=== PATIENT | female | born 1990 | race Two or more races ===

== ENCOUNTER 2019-03-05 03:13 | Emergency (ER) | payer SELFPAY ==
[~2019-03-05] VITALS: Ht 149.9 cm; Wt 57.2 kg
--- NOTE | 2019-03-05 03:20 | NUR ---
PT [id number] FOR ETOH, "FOUND PT IN THE [place] BY [employer]" -HEAD TRAUMA, PT IS AAOX0, NOTED RESTLESNESS AND AGITATION, KEPT RESTED AND COMFORTABLE,HOOKED TO FLAT FINISHER, WILL CONTINUE TO MONITOR.
[2019-03-05] MEDS ORDERED: OLANZAPINE 10 MG VIAL IM ONE ×2 (03:25→03:30)
[2019-03-05 03:56] LABS: APPEARANCE,URINE Clear (CLEAR); BILIRUBIN,URINE Negative (NEGATIVE); BLOOD, URINE Moderate Ery/uL (NEGATIVE); COLOR,URINE Light yellow (YELLOW); KETONES,URINE Negative (NEGATIVE); LEUKOCYTE ESTERASE ,URINE Negative (NEGATIVE); NITRITE, URINE Negative (NEGATIVE); PROTEIN,URINE Negative (NEGATIVE); UGLUCOSE Negative (NEGATIVE); UROBILINOGEN,URINE 0.2 EU/dL (0.2)
--- NOTE | 2019-03-05 03:59 | NUR ---
URINE SPECIMEN COLLECTED AND SENT TO LAB.
[2019-03-05 04:08] LABS: BASOPHILS # (AUTO) 0.1 /CMM (0.0-0.2); BASOPHILS % (AUTO) 1.2 % (0.0-2.0); EOSINOPHILS % (AUTO) 1.5 % (0.0-6.0); HEMATOCRIT 41 % (33-45); HEMOGLOBIN 13.7 g/dL (11.5-14.8); LYMPHOCYTES # (AUTO) 2.5 /CMM (0.8-4.8); MEAN CORPUSCULAR HGB CONC 34 g/dl (31.0-36.0); MEAN CORPUSCULAR VOLUME 91 fL (82-100); MONOCYTES # (AUTO) 0.6 /CMM (0.1-1.30); MONOCYTES % (AUTO) 7.9 % (2.0-12.0); NEUTROPHILS # (AUTO) 4.3 /CMM (1.8-8.9); NEUTROPHILS % (AUTO) 56.4 % (43.0-81.0); PLATELET COUNT (AUTO) 295 /CMM (150-450); RED BLOOD CELL COUNT(AUTO) 4.49 MIL/uL (4.0-5.2); WHITE BLOOD COUNT (AUTO) 7.7 K/uL (4.3-11.0)
[2019-03-05 04:17] LABS: CALCIUM, SERUM 8.4 mg/dL (8.5-10.1); CREATININE 0.7 mg/dL (0.6-1.3); POTASSIUM 3.1 mmol/L (3.5-5.1)
[2019-03-05 04:24] LABS: ALBUMIN 4.2 g/dL (3.4-5.0); BILIRUBIN,DIRECT 0.1 mg/dL (0.0-0.2); BILIRUBIN,TOTAL 0.2 mg/dL (0.2-1.0); SALICYLATE 1.1 mg/dL (2.8-20.0); TOTAL PROTEIN, SERUM 7.5 g/dL (6.4-8.2)
[2019-03-05 04:25] LABS: BACTERIA,URINE None seen /HPF (None Seen); RBC,URINE 0-2 /HPF (0-2); SQUAMOUS EPITHELIAL CELL,UR Few /HPF (None Seen); WBC,URINE 0-2 /HPF (0-3)
[2019-03-05] MEDS ORDERED: POTASSIUM CL. PREMIX PERIPHER. 200 ML ONE (04:28)
[2019-03-05] MEDS ORDERED: IV NS 0.9% 1,000 ML BAG IV ONE (04:30)
[2019-03-05] MEDS: POTASSIUM CL. PREMIX PERIPHER. 50 ML IV SCH ×4 (04:46→07:48)
--- NOTE | 2019-03-05 06:08 | NUR ---
PT ASLEEP ON BED EASILY AROUSABLE, V/S STABLE, WILL CONTINUE TO MONITOR.
--- NOTE | 2019-03-05 07:26 | NUR ---
REPORT GIVEN TO LARON BLACKBURN FOR SUSAN.
--- NOTE | 2019-03-05 07:27 | NUR ---
REPORT RECEIVED FROM TRE INFANTE RN FOR SUSAN. RECEIVED PT IN BED ASLEEP, TUCKED IN BLANKET. AROUSABLE BY VOICE. HOOKED TO MONITOR. ONGOING 3RD BAG OF POTASSIUM 10MEQ TOLERATED WELL. KEPT WARM, SAFE AND COMFORTABLE.
--- NOTE | 2019-03-05 09:37 | NUR ---
PT IN BED ASLEEP, AROUSABLE BY VOICE. HOOKED TO MONITOR, VSS, KEPT WARM, SAFE AND COMFORTABLE.
--- NOTE | 2019-03-05 10:59 | NUR ---
PT AWAKE, ASKED INFORMATION FROM PT, DID NOT ANSWER. PT WENT BACK TO SLEEP AFTER 5MIN.
--- NOTE | 2019-03-05 12:58 | NUR ---
PT ASLEEP IN BED. TUCKED IN BLANKET, HOOKED TO MONITOR, VSS, WILL CONTINUE TO MONITOR ACCORDINGLY.
--- NOTE | 2019-03-05 15:24 | NUR ---
PT ASLEEP IN BED. TUCKED IN BLANKET, HOOKED TO MONITOR, VSS, WILL CONTINUE TO MONITOR ACCORDINGLY.
--- NOTE | 2019-03-05 16:00 | NUR ---
PT AWAKE, AOx4, PROVIDED WITH PANTS AND SLIPPERS. ABLE TO AMBULATE W STEADY GAIT. Patient discharged to home in stable condition. Written and verbal after care instructions given. Patient verbalizes understanding of instruction.
[2019-03-05 16:32] VITALS: BP 112/63
== END 2019-03-05 16:32 | disposition home or self-care (01) ==
LOC: EDBD 03:13 → ER 03:13
DX: F10.129 Alcohol abuse with intoxication, unspecified (principal); G93.40 Encephalopathy, unspecified; E87.0 Hyperosmolality and hypernatremia; E87.6 Hypokalemia; Y90.8 Blood alcohol level of 240 mg/100 ml or more
CPT/HCPCS: 36415; 51701; 80048; 80076; 80305; 80307; 80329; 81001; 85025; 96365; 96366; 96372; 99283; G0480; J3480; J3490; J7030; 81000-TC